=== PATIENT | female | born 1970 | race African-American/Black ===

== ENCOUNTER 2017-10-25 15:46 | Emergency (ER) | payer OTHER ==
[~2017-10-25] VITALS: Ht 167.6 cm; Wt 88.5 kg
[2017-10-25 15:55] VITALS: BP 129/82
[2017-10-25] MEDS ORDERED: NAPROSYN500 MG PO (16:04)
[2017-10-25] MEDS ORDERED: NORFLEX100 MG PO (16:04)
== END 2017-10-25 16:42 | disposition home or self-care (01) ==
LOC: ER 15:46
DX: M54.5 Low back pain (principal); G89.29 Other chronic pain; J45.909 Unspecified asthma, uncomplicated; Z88.1 Allergy status to other antibiotic agents; Z91.048 Other nonmedicinal substance allergy status

== ENCOUNTER 2020-06-09 07:45 | Emergency (ER) | payer OTHER ==
[~2020-06-09] VITALS: Ht 167.6 cm; Wt 90.7 kg
[~2020-06-09 07:45] MED LIST: NAPROSYN500 MG PO; NORFLEX100 MG PO
[2020-06-09] MEDS ORDERED: METOPROLOL SUCC25 M1 PO (08:16)
[2020-06-09] MEDS ORDERED: TIZANIDINE HCL4 M2 PO (08:17)
[2020-06-09] MEDS ORDERED: BACLOFEN5 MG PO (08:17)
[2020-06-09] MEDS ORDERED: ZOLPIDEM TARTRA10 MG PO (08:17)
[2020-06-09] MEDS ORDERED: NORCO 10-325 T1 EACH PO (08:17)
[2020-06-09 08:21] LABS: URINE BILIRUBIN NEGATIVE (Negative); URINE BLOOD 1+ (Negative); URINE CLARITY CLEAR; URINE COLOR YELLOW; URINE GLUCOSE-RANDOM* NEGATIVE (Negative); URINE KETONES NEGATIVE (Negative); URINE PROTEIN (DIPSTICK) NEGATIVE (Negative); URINE UROBILINOGEN 0.2 E.U./dl (0.2-1.0)
[2020-06-09 08:22] LABS: URINE LEUKOCYTES-REFLEX 2+ (Negative); URINE NITRITE-REFLEX POSITIVE (Negative)
[2020-06-09 08:34] LABS: CASTS None Seen /LPF (None Seen); CRYSTALS None Seen /LPF (None Seen); SQUAMOUS 4-10 Moderate /LPF (0-3)
[2020-06-09 08:35] LABS: BACTERIA-REFLEX >30 Many /HPF (None Seen); URINE RBC 0-2 Rare /HPF (0-2); URINE WBC-REFLEX 0-5 Rare /HPF (0-5)
[2020-06-09 08:39] LABS: HEMATOCRIT 36.1 % (37.0-47.0); HEMOGLOBIN 11.3 gm/dL (12.0-15.0); MCH 24.6 pg (26.0-34.0); MCHC 31.4 g/dL (28.0-37.0); MCV 78.6 fL (80.0-100.0); RBC 4.6 mil/uL (4.20-5.00); RDW 16.1 % (10.5-14.5); WBC 8.4 thou/uL (4.0-11.0)
[2020-06-09 08:50] LABS: CALCIUM 9.9 mg/dL (8.5-10.1); CREATININE 0.9 mg/dL (0.6-1.0); POTASSIUM 4.7 mmol/L (3.5-5.1)
[2020-06-09 08:56] LABS: ALBUMIN 3.8 g/dL (3.4-5.0); TOTAL BILIRUBIN 0.3 mg/dL (0.2-1.0); TOTAL PROTEIN 8.4 g/dL (6.4-8.2)
[2020-06-09] MEDS ORDERED: BACTRIM DS TAB1 EACH PO (10:00)
[2020-06-09 10:22] VITALS: BP 134/80
== END 2020-06-09 10:22 | disposition home or self-care (01) ==
LOC: ER 07:45
PROVIDERS: Emergency Medicine
DX: N39.0 Urinary tract infection, site not specified (principal); G89.29 Other chronic pain; R10.84 Generalized abdominal pain; M25.562 Pain in left knee; J45.909 Unspecified asthma, uncomplicated; Z79.899 Other long term (current) drug therapy; Z91.048 Other nonmedicinal substance allergy status; Z88.8 Allergy status to other drugs, medicaments and biological substances; Z88.1 Allergy status to other antibiotic agents; Z88.6 Allergy status to analgesic agent

== ENCOUNTER 2020-08-09 03:16 | Inpatient (IN) | payer OTHER ==
[~2020-08-09] VITALS: Ht 167.6 cm; Wt 112.1 kg
[~2020-08-09 03:16] MED LIST changes: +BACLOFEN5 MG PO; +BACTRIM DS TAB1 EACH PO; +METOPROLOL SUCC25 M1 PO; +NORCO 10-325 T1 EACH PO; +TIZANIDINE HCL4 M2 PO; +ZOLPIDEM TARTRA10 MG PO
[2020-08-09 03:18] VITALS: BP 130/86
[2020-08-09 03:43] LABS: HEMATOCRIT 36.4 % (37.0-47.0); HEMOGLOBIN 11.6 gm/dL (12.0-15.0); MCH 25.2 pg (26.0-34.0); MCHC 31.9 g/dL (28.0-37.0); MCV 79.1 fL (80.0-100.0); RBC 4.6 mil/uL (4.20-5.00); RDW 16.3 % (10.5-14.5)
[2020-08-09 03:48] LABS: ANION GAP 11 mmol/L (7-16); BUN 14 mg/dL (7-18); CALCIUM 8.9 mg/dL (8.5-10.1); CHLORIDE 102 mmol/L (98-107); CO2 28 mmol/L (21-32); CREATININE 0.9 mg/dL (0.6-1.0); GLUCOSE 134 mg/dL (74-106); SODIUM 141 mmol/L (136-145)
[2020-08-09 03:58] LABS: ALBUMIN 3.4 g/dL (3.4-5.0); LIPASE 111 U/L (73-393); SGOT 12 U/L (15-37); SGPT 15 U/L (30-65); TOTAL BILIRUBIN 0.2 mg/dL (0.2-1.0); TOTAL PROTEIN 8.2 g/dL (6.4-8.2); TROPONIN-I <0.06 ng/mL (<0.06)
[2020-08-09 04:02] LABS: URINE BILIRUBIN NEGATIVE (Negative); URINE BLOOD NEGATIVE (Negative); URINE CLARITY SL CLOUDY; URINE COLOR YELLOW; URINE GLUCOSE-RANDOM* NEGATIVE (Negative); URINE KETONES NEGATIVE (Negative); URINE LEUKOCYTES-REFLEX TRACE (Negative); URINE PROTEIN (DIPSTICK) TRACE (Negative); URINE SPECIFIC GRAVITY >= 1.030 (1.005-1.035)
[2020-08-09 04:05] LABS: URINE NITRITE-REFLEX POSITIVE (Negative)
[2020-08-09 04:10] LABS: AMP/METHAMP Negative (Negative); BARBITURATES Negative (Negative); BENZODIAZEPINES Negative (Negative); COCAINE Negative (Negative); METHADONE Negative (Negative); OPIATES POSITIVE (Negative); PCP Negative (Negative)
[2020-08-09 04:30] LABS: BACTERIA-REFLEX >30 Many /HPF (None Seen); CASTS None Seen /LPF (None Seen); MUCUS 0-3 Light strn/LPF (None Seen); SQUAMOUS 0-3 Few /LPF (0-3); URINE WBC-REFLEX 6-15 Few /HPF (0-5)
[2020-08-09 04:31] LABS: CRYSTALS None Seen /LPF (None Seen); URINE RBC 0-2 Rare /HPF (0-2)
--- NOTE | 2020-08-09 07:35 | EKG ---
[place] [address] [facility] 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1970 Requested By: Chrissy Reza Order Number: [id number] MD: Julian Burnett Measurements Intervals [place] Rate: 82 P: 58 NH: 190 QRS: 48 QRSD: 90 T: 40 QT: 386 QTc: 451 Interpretive Statements Sinus rhythm Poor R wave progression Baseline wander in lead(s) V5 Compared to ECG 09/04/2006 11:39:12 No significant change was found Electronically Signed On 08-09-2020 7:35:35 CDT by Julian Burnett [email or web address] <ELECTRONICALLY SIGNED> By: Julian Burnett MD, [facility] 08/09/20 0735 0404 3 Julian Burnett MD, [facility] /EPI
[2020-08-09 09:31] LABS: FOLIC ACID 26.2 ng/mL (8.6-58.9)
[2020-08-09 17:06] VITALS: BP 134/74
[2020-08-09 18:01] VITALS: BP 134/74
[2020-08-09 18:30] VITALS: BP 98/65
--- NOTE | 2020-08-09 18:36 | NUR ---
PATIENT ARRIVED TO UNIT AT SHIFT CHANGE. PATIENT ORIENTED TO ROOM, CONTROLS AND TV. SCD'S IN PLACE. VITALS STABLE. IV FLUIDS INFUSING ON L FA W NO ISSUES. PATIENT VOICING NO OTHER NEEDS. WILL ENDORSE TO INDIRA RN
[2020-08-09 23:23] VITALS: BP 92/57
[2020-08-10 04:52] LABS: CALCIUM 8.2 mg/dL (8.5-10.1); CREATININE 0.9 mg/dL (0.6-1.0); MAGNESIUM 1.6 mg/dL (1.8-2.4); POTASSIUM 3.5 mmol/L (3.5-5.1)
--- NOTE | 2020-08-10 05:30 | NUR ---
ASSUMED CARE OF PT AT SHIFT CHANGE. PT IS AOX4 AND LETS NEEDS BE KNOWN. PT IS UP AD [place]. PT REPORTED SOME ABDOMINAL PAIN AND WAS TREATED WITH PRN PAIN MEDS. PT HAD 2 LUNCH BOXES AND SEVERAL DRINKS. LEFT FOREARM IV INFILTRATED AND CAUSED SOME SWELLING. NEW IV STARTED IN RIGHT FOREARM. IVF CONTINUED. PT WAS ABLE TO GET COMFORTABLE AND SLEEP PART OF THE SHIFT. VSS AND NO S/S OF ACUTE DISTRESS. WILL CONTINUE TO MONITOR FOR CHANGES.
[2020-08-10 05:42] LABS: ABSOLUTE NEUTROPHILS 2.5 thou/uL (1.4-8.2); BASOPHILS 0.3 % (0.0-2.0); EOSINOPHILS 0.2 % (0.0-3.0); HEMATOCRIT 32.1 % (37.0-47.0); HEMOGLOBIN 10.2 gm/dL (12.0-15.0); LYMPHOCYTES 28.9 % (24.0-44.0); MCH 25.3 pg (26.0-34.0); MCHC 31.8 g/dL (28.0-37.0); MCV 79.5 fL (80.0-100.0); MONOCYTES 4.5 % (1.0-8.0); PLATELET COUNT 312 thou/uL (150-400); POLYS 66.1 % (36.0-66.0); RBC 4.04 mil/uL (4.20-5.00); RDW 16.2 % (10.5-14.5); WBC 3.7 thou/uL (4.0-11.0)
[2020-08-10 08:42] VITALS: BP 117/75
--- NOTE | 2020-08-10 11:03 | NUR ---
Nutrition: pt seen due to high risk screen for poor intake, weight loss. Admitted with N/V, abdominal pain 2' pyelonephritis. Highly variable weights. Pt reports UBW is 235#. Recent bedscale weight 247#. Pt unsure of any weight changes recently. Thinks she has lost some weight due to increased activity at her job. N/V reported past 2 days only and po was normal prior to that. Plans to order meals. Voices wanting to get home. Pt is low risk.
[2020-08-10 11:09] LABS: CHOLESTEROL 95 mg/dL (<200); HDL CHOLESTEROL 37 mg/dL (>40); LDL CHOLESTEROL 39 mg/dL (<100); TC:HDL 2.6 Ratio (Not establshd); TRIGLYCERIDE 97 mg/dL (<150); VLDL 19 mg/dL (<40)
--- NOTE | 2020-08-10 12:47 | 2DMMODE ---
[facility] [place] [address] 2 D/M-MODE ECHOCARDIOGRAM Name: DEX ENRIQUEZ Room #: 463-P ADM IN M.R.#: [id number] Admission: 08/09/20 Attend Phys: Елена Easton MD Discharge: Date of : 74 Report #: [id number] THIS REPORT FOR: cc: [facility] - Clinic physician unknown [facility] - Clinic physician unknown Hasmukh Cisneros MD [facility]LY [facility] ~ APPROVED REPORT Study performed: 08/10/2020 10:33:14 EXAM: Comprehensive 2D, Doppler, and color-flow Echocardiogram Patient Location: Bedside Room #: 463 Status: routine BSA: 2.16 HR: 91 bpm BP: 117/75 mmHg Rhythm: NSR Other Information Study Quality: Adequate Indications Chest Pain Hypertension/HDD 2D Dimensions RVDd: 30.65 mm IVSd: 9.37 (7-11mm) LVOT Diam: 24.94 (18-24mm) LVDd: 56.13 mm PWd: 8.36 (7-11mm) Ascending Ao: 28.27 (22-36mm) LVDs: 45.68 (25-40mm) Left Atrium: 34.71 (27-40mm) Aortic Root: 30.56 mm Volumes Left Atrial Volume (Systole) Single Plane 4CH: 28.00 mL Single Plane 2CH: 40.39 mL LA ESV Index: 17.00 mL/m2 Aortic Valve AoV Peak Marlon.: 1.16 m/s AO Peak Gr.: 5.41 mmHg LVOT Max P.61 mmHg LVOT Max V: 1.07 m/s [facility] [address] [place] [address] 2 D/M-MODE ECHOCARDIOGRAM Name: ENRIQUEZDEX ANDREE Room #: 463-P [facility] IN ..#: [id number] Admission: 08/09/20 Attend Phys: Елена Easton MD Discharge: Date of : 74 Report #: [id number] VANNA Vmax: 4.51 cm2 Mitral Valve E/A Ratio: 0.6 MV Decel. Time: 134.19 ms MV E Max Marlon.: 0.75 m/s MV A Marlon.: 1.16 m/s MV PHT: 38.92 ms IVRT: 83.04 ms Pulmonary Valve PV Peak Marlon.: 1.06 m/s PV Peak Gr.: 4.47 mmHg Pulmonary Vein P Vein S: 0.52 m/s P Vein A: 0.35 m/s P Vein D: 0.65 m/s P Vein A Dur.: 115.3 msec P Vein S/D Ratio: 0.80 Left Ventricle The left ventricle is normal size. There is global hypokinesis of the left ventricle. There is normal left ventricular wall thickness. Left ventricular ejection fraction is moderately decreased. LVEF is 35%. Grade I - abnormal relaxation pattern. Right Ventricle The right ventricle is normal size. The right ventricular systolic function is normal. Atria The left atrium size is normal. The right atrium size is normal. Aortic Valve The aortic valve is normal in structure. No aortic regurgitation is present. There is no aortic valvular stenosis. Mitral Valve The mitral valve is normal in structure. There is no mitral valve regurgitation noted. No evidence of mitral valve stenosis. Tricuspid Valve The tricuspid valve is normal in structure. There is no tricuspid valve regurgitation noted. Pulmonic Valve The pulmonary valve is normal in structure. There is no pulmonic [facility] [address] [place] [address] 2 D/M-MODE ECHOCARDIOGRAM Name: DEX ENRIQUEZ Room #: 463-P ADM IN M.R.#: [id number] Admission: 08/09/20 Attend Phys: Елена Easton MD Discharge: Date of : 74 Report #: [id number] valvular regurgitation. Great Vessels The aortic root is normal in size. IVC is normal in size and collapses >50% with inspiration. Pericardium There is no pericardial effusion. <Conclusion> Technically a difficult study Normal ventricular size/wall thickness Global hypokinesis ejection fraction 35% Grade 1 diastolic dysfunction Normal right ventricular size/function Normal atrial size Color-flow Doppler study was performed of the aortic/mitral/tricuspid/pulmonary valve Normal aortic/mitral valve structure and function No tricuspid valve insufficiency Normal aortic root size No pericardial effusion <ELECTRONICALLY SIGNED> By: Hasmukh Cisneros MD, FACC 08/10/20 1246 1246 45 Hasmukh Cisneros MD, FAC /INF
--- NOTE | 2020-08-10 13:08 | EKG ---
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1970 Requested By: Collette Acevedo Order Number: [id number] MD: Hasmukh Cisneros Measurements Intervals [place] Rate: 93 P: 46 FL: 171 QRS: 39 QRSD: 92 T: 67 QT: 366 QTc: 456 Interpretive Statements Sinus rhythm Probable left atrial enlargement Anterior infarct, old Compared to ECG 08/09/2020 04:04:03 Myocardial infarct finding now present Poor R-wave progression no longer present Electronically Signed On 08-10-2020 13:08:00 CDT by Hasmukh Cisneros [email or web address] <ELECTRONICALLY SIGNED> By: Hasmukh Cisneros MD, [facility] 08/10/20 1308 1041 1041 Hasmukh Cisneros MD, [facility] /EPI
--- NOTE | 2020-08-10 13:57 | NUR ---
PT ADMITTED RELATED TO ACUTE PYELONEPHTITIS. CM REVIEWED CHART AND SPOKE WITH CARE TEAM. CM MET WITH PT AT BEDSIDE THIS DAY. PT INDICATED SHE RESIDES IN A HOUSE WITH HER KIDS WITH 2 STEPS TO ENTER AND 8 TO BASEMENT. 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 PT INDICATED NO DME OR HH HX. PT INDICATED THAT HER PCP IS DR. LINDSEY AMEZCUA AT [facility]. PT INDICATED SHE IS PATIENT PAY. [employer]ASSIST ASSESSED FOR POSSIBLE MEDICAID. PT INDICATED SHE PLANS TO RETURN HOME ONCE MEDICALLY STABLE. CM FOLLOWING REGARDING DC PLANNING. CARE TEAM INDICATED THAT SHE ANTICIAPTES SHE WILL BE ABLE TO DC HOME TOMORROW.
--- NOTE | 2020-08-10 14:48 | NUR ---
PT INDICATED SHE HAD FAMILY ISSUE AND NEEDS TO DISCHARGE. PHYSICIAN INDICATED THAT PT IS MEDICALLY STABLE TO DC THIS DAY. PT TO FOLLOW UP WITH HER PCP. NO OTHER CM INTERVENTION INDICATED. CASE CLOSED.
[2020-08-10 15:30] VITALS: BP 117/75
--- NOTE | 2020-08-10 18:05 | NUR ---
Assumed pt care this am VS stable, complained of chest pain that wound go on the off and had been there for a few months. MD aware, orders placed for work up with cardiology. Pt requested to be dc d/t family emergency. DC orders received, instructiong given to the pt. IV removed and was picked up by the daughter. POC followed, no signs or verbalizations of distress noted. Headached was managed with medications
== END 2020-08-10 18:17 | disposition home or self-care (01) | DRG 918 ==
LOC: ER 03:16 → 4W 05:57 → EROBS 05:57 → 4W 18:13
PROVIDERS: Nurse Practitioner; ADMIT Internal Medicine; ATTEND Internal Medicine
DX: T61.781A Other shellfish poisoning, accidental (unintentional), initial encounter (principal); N12 Tubulo-interstitial nephritis, not specified as acute or chronic; E78.5 Hyperlipidemia, unspecified; J45.909 Unspecified asthma, uncomplicated; G43.909 Migraine, unspecified, not intractable, without status migrainosus; N34.2 Other urethritis; K59.00 Constipation, unspecified; D57.1 Sickle-cell disease without crisis; G89.29 Other chronic pain; E83.42 Hypomagnesemia; R07.89 Other chest pain; Y92.89 Other specified places as the place of occurrence of the external cause; Z88.6 Allergy status to analgesic agent; Z88.1 Allergy status to other antibiotic agents; Z88.8 Allergy status to other drugs, medicaments and biological substances; Z79.891 Long term (current) use of opiate analgesic; Z79.82 Long term (current) use of aspirin; Z79.899 Other long term (current) drug therapy
CPT/HCPCS: 10047